=== PATIENT | female | born 1970 | race Caucasian/White ===

== ENCOUNTER → 2017-02-27 | Outpatient (CLI) | payer BC, OTHER ==
[~2017-02-27] MED LIST: ALBINS/ INH; ATRINS NEB; DICY10CA55 PO; FERR1TAB13 PO; FLUT0.15; HYDCR25 TOP; IBUP-1451 PO; KETOCONAZOLE TOP; METO25TA3 PO; MOME200A INH; PRLSR20 PO; SERT25TA PO; XPNINS1255 INH; ventolin inhaler
--- NOTE | 2017-02-28 06:18 | PAP/PSG TECHNICIAN REPORT ---
[facility] Fire Prevention Forester Polysomnogram Report Study name: None Report date: 02/28/2017 Study date: 02/27/2017 Referring Physician: Giulia PACHECO M.D. Name: CHEYANNE WOODRUFF Interpreting Physician: Eileen Pacheco M.D. Date of : 1970 Fire Prevention Forester: Sandra Norwood RPSGT. Sex: Female Age: 46 Study Type: PSG Weight: 251 lbs 15.75 in Height: 46 years, Height 5' 5" Neck Circum: BMI: 41.76 Medications: FERROUS SULFATE 324 MG, MONTELUKAST 10 MG, PREDNISONE 7.5 MG, METHOTREXATE 2.5 MG, FUROSEMIDE 20 MG, FLUTICASONE 50 MCG/ACT, METOPROLOL 25 MG, FOLIC ACID 5 MG, VIT C 500 MG, OMEPRAZOLE 20 MG, LEVALBUTEROL 0.63 MG, SPIRONALACTONE 25 MG Patient History 46 yr-old female here for a baseline/split study. She has a history of frequent awakenings, waking up choking or gasping, and daytime sleepiness. Her [place] scale is 17. She is lying in bed propped up on [address] pill[address] She sleeps this way at home as well. The test was started on room air. ETCO2 testing is included in this study. Room 3 Parameters Monitored NPSG: E1-M2, E2-M1, Fp1-M2, Fp2-M1, F3-M2, F4-M2, F4-M1, C3-M2, C4-M2, C4-M1, O1-M2, O2-M2, O2-M1, T3-M2, T4-M1, P3-M2, P4-M1, CHIN1, CHIN2, HR, EKG, Legs, PFLOW, SNOR, FLOW, CFLOW, Tidal Volume, THOR, ABDO, SpO2, PLTH, CPRESS, ETCO2 Wave, ETCO2, pH Sleep Architecture Sleep Stages Time at Lights Off 11:00:34 PM STAGES Time (min.) TST (%) Time at Lights On 5:33:04 AM Wake 29.0 -- Total Recording Time (TRT) 392.50 min. N1 21.5 6 Total Sleep Period (TSP) 378.0 min. N2 248.5 68 Total Sleep Time (TST) 363.5min. N3 21.5 6 Awake Time 29.0 min. REM 72.0 20 Wake after Sleep Onset 14.5 min. Sleep Efficiency (SE) 93 % Sleep Onset Latency (MARIANN) 14.5 min. Number of Stage 1 Shifts None Awakenings 9 Stage Changes 56 Number of REM periods 4 REM 72.0 20 REM Latency 78.5 min. NREM 291.5 80 Body Position Analysis Supine Right Left Side Prone Vertical Total Sleep Time (min.) 392.5 0.0 0.0 0.00 0.0 0.0 Total Sleep Time (%) 100% 0% 0% 0 0% N/A% Total Sleep Time REM (min.) 72.0 0.0 0.0 None 0.0 0.0 Total Sleep Time NREM (min.) 291.5 0.0 0.0 None 0.0 0.0 Intermittent Wake (min.) 29.0 0.0 0.0 None 0.0 0.0 Total Sleep Period (%) 100% None None None None None Arousals Myoclonus (PLM) * Events Count Index Events Count Index Spontaneous 15 2 Events Awake (PLMW) 104 215.2 Respiratory 1 0.2 Events Asleep w/ Arousal (PLMA) 13 2.1 PLM 12 2 Events Asleep w/o Arousal (PLMS) 401 66.2 Snoring 2 0 Total Asleep 414 68.3 Total 30 5 Total 518 79 Respiratory Analysis * CA OA MA CH H RERA Total Count 0 0 0 0 14 0 14 Index 0.0 0.0 0.0 0 2.3 0 2.3 Mean Duration 0.0 0.0 0.0 0.00 14.9 0.0 14.9 Longest Duration 0.0 0.0 0.0 0.00 0.0 0.0 22.0 Respiratory Event Summary Total Supine ~Supine Right Left Prone REM NREM Apneas Count 0 0 N/A N/A N/A N/A 0 0 Index 0.0 0 N/A N/A N/A N/A 0 0 Hypopneas (4% Desat) Count 14 14 N/A N/A N/A N/A 10 4 Index 2.3 2.3 N/A N/A N/A N/A 8.3 0.8 Apneas & All Hypopneas Count 14 14 N/A N/A N/A N/A 10 4 Index 2.3 2 N/A N/A N/A N/A 8.3 0.8 Respiratory Events (Fourth Hand+All Hyp+RERA) Count 14 14 N/A N/A N/A N/A 10 4 Index 2.3 2 N/A N/A N/A N/A 8.3 0.8 Respiratory Related Arousal Count 1 14 N/A N/A N/A N/A 0 1 Index 0.2 0 N/A N/A N/A N/A 0 0 Snoring Analysis Supine Right Left Prone REM NREM Total Snore duration 1.3 min Snores count 28 N/A N/A N/A 3 25 28 Snore mean duration 2.8 Sec Snores index 5 N/A N/A N/A 2.5 5.1 4.6 TST with snoring (%) 0.4% SpO2 Analysis Total REM NREM Awake <50% 0.0 min. 0.0 min. 0.0 min. 0.0 min. 51 - 60% 0.0 min. 0.0 min. 0.0 min. 0.0 min. 61 - 70% 0.0 min. 0.0 min. 0.0 min. 0.0 min. 71 - 80% 0.0 min. 0.0 min. 0.0 min. 0.0 min. 81 - 90% 3.9 min. 3.6 min. 0.2 min. 0.1 min. 91 - 100% 388.4 min. 68.4 min. 291.1 min. 28.9 min. Average 93 93 93 94 Minimum SpO2 85 85 87 90 Desaturation Event Index 3.4 13.3 1.2 2.1 # Desat. Events below 89% 7 6 1 N/A Time(%) with Saturation below 89% 0.3 0.3 0.0 0.0 Time(min.) with Saturation below 89% 1.1 1.0 0.1 0.0 Heart Rate Analysis End Tidal CO2 Analysis Min (bpm) Max (bpm) Average (bpm) TSP (mins) % of TSP Awake 64 91 72 Above 55 mmHg 0.0 0.0 NREM 61 92 68 50-55 mmHg 0.0 0.0 REM 62 81 69 45-50 mmHg 0.0 0.0 Overall 61 92 68 40-45 mmHg 0.8 0.2 35-40 mmHg 79.6 21.9 30-35 mmHg 219.1 60.3 Average ETCO2 0.1 Supplemental O2 Values Minimum O2 level: None Value Start Time End Time Fire Prevention Forester Comments Ms. Woodruff slept in the supine position propped up on 5 pillows. No cardiac arrhythmias were noted. PLMs were noted throughout the study. No bruxism noted. Very little snoring was noted and scored as a 1 on a scale of 1 through 5. (0=no snoring, 5=snoring loud enough to be heard through a closed door or down the umanzor way). He did not meet specific Split-Night criteria during the diagnostic portion of this study. She did not wake up to use the restroom during the night. Ms. Woodruff stated that she slept better than usual. The final report will be interpreted and signed by a sleep physician. The completed physician report will then be placed in the patient medical record. Therapy (cm H2O) 0 TIB (min.) 392.5 TST (min.) 363.5 Sleep Onset (min.) 14.5 REM Onset From Sleep (min.) 78.5 Sleep Efficiency % 93 Wakefulness (%) 7 Wakefulness (min.) 29.0 NREM 1 (%) 6 NREM 1 (min.) 21.5 NREM 2 (%) 68 NREM 2 (min.) 248.5 NREM 3 (%) 6 NREM 3 (min.) 21.5 REM (%) 20 REM (min.) 72.0 # Arousals 30 Arousal Index 5 # Snore 28 Snore Index 4.6 AHI 2.3 AHI Supine 2 AHI Non-Supine N/A NREM AHI 0.8 REM AHI 8.3 RDI 2.3 # Obstructive Apnea 0 # Central Apnea 0 # Mixed Apnea 0 # Hypopneas 14 RERAs 0 Total Respiratory Events 14 Time Below SpO2 89% (min.) 1.1 Mean NREM SpO2 (%) 93 Mean REM SpO2 (%) 93 Mean Sleep SpO2 (%) 93 Min NREM SpO2 (%) 87 Min REM SpO2 (%) 85 Position Supine (min.) 392.5 Position Non-supine (min.) 0.0 LM Index Sleep 68.3 LM Index NREM 76.0 LM Index REM 37.5 Mean Heart Rate (bpm) 68 Min Heart Rate (bpm) 61
--- NOTE | 2017-03-11 09:09 | POLYSOMNOGRAPH REPORT ---
REFERRING PERSON: Dr. Mary Pacheco. HAND COPER: Sandra Norwood. Ms. Woodruff is a 46-year-old female sent for a baseline sleep study. She has a history of frequent awakenings, waking up feeling like she is choking or gasping from sleep and excessive daytime sleepiness. Her [place] Sleepiness Scale score on the evening of this study is 17. BMI is 41.76. Of note, this patient is lying in bed, propped up on 5 pillows, which is what she sleeps on at home. Following the technical and digital specifications of the [place] [employer] (AASM) a standard diagnostic polysomnogram was performed monitoring EEG, EOG, EMG (chin and leg deviations), oxygen saturation, body position, digital video, respiratory effort and airflow. The sleep Stage and event scoring was based on the AASM Manual for the Scoring of Sleep and Associated Events 2007 edition. Apneas are defined as a drop in the peak thermal sensor excursion by >90% of baseline for at least 10 seconds. Hypopneas were scored using the 4% oxygen desaturation rule (4A-[employer]ic[employer]) and a decrease in the nasal pressure excursions by >30% of baseline for at least 10 seconds. Respiratory effort-related arousal (RERA's) is defined as a sequence of breaths lasting at least 10 seconds characterized by increasing respiratory effort or flattening of the nasal pressure waveform leading to an arousal from sleep when the sequence of breaths does not meet criteria for an apnea or hypopnea. Apnea Hypopnea index (AHI) is defined as the number of apneas and hypopneas occurring in an hour of sleep. Respiratory disturbance index (RDI) is defined as the number of apneas, hypopneas, and RERA's occurring in an hour of sleep. Ms. Woodruff's total sleep period time was 378 minutes. Total sleep time was 363.5 minutes. Sleep efficiency was 93%. Latency to sleep onset was 14.5 minutes with wake after sleep onset of also 14.5 minutes. Total non-REM sleep time was 291.5 minutes. She spent 6% of that time in N1 sleep, 68% in N2 sleep and 6% in N3 sleep. REM latency was 78.5 minutes. Total REM sleep time was 72 minutes or 20% of total sleep time. There were 30 cortical arousals from sleep. Two of these arousals were due to snoring, 12 due to periodic limb movements of sleep and 1 due to a respiratory event, and the remainder were spontaneous. There were 414 leg movements on this test. Leg movement index was 68.3; however, leg movement with arousal index was 2.1. There were no central, obstructive or mixed apneas on this test. There were 14 hypopneas and no RERA. Apnea-hypopnea index was normal at 2.3. REM AHI was 8.3. 28 snoring events were recorded. Total sleep time with snoring was 0.4%. Mean saturation was 93% with desaturations to 85%. Saturations were less than 89% for 1.1 minutes of recorded time. There was no cardiac ectopy noted on this study. During sleep, this patient's heart rate ranged from a low of 61 beats per minute to a high of 92 beats per minute. End End-tidal CO2 was recorded on this test, but appears to be incomplete. It does not appear that she had elevated end-tidal CO2. IMPRESSION AND PLAN: Ms. Woodruff is a 46-year-old female who sleeps propped up on 5 pillows at home and had her study performed that way tonight without evidence when she sleeps in that position of sleep apnea or nocturnal hypoxemia. This patient did not have bruxism, parasomnia or clinically significant periodic limb movements of sleep.
== END | disposition home or self-care (01) ==
LOC: C.NEUR 21:00
PROVIDERS: ATTEND Family Medicine
DX: G47.33 Obstructive sleep apnea (adult) (pediatric) (principal); E66.1 Drug-induced obesity; G47.10 Hypersomnia, unspecified; D86.0 Sarcoidosis of lung; D86.85 Sarcoid myocarditis